=== PATIENT | female | born 1955 | race Caucasian/White ===

== ENCOUNTER → 2018-02-25 07:12 | Outpatient (CLI) | payer OTHER, SELFPAY ==
[2018-02-25 10:33] LABS: Anion Gap 8 (5-15); BUN 16 mg/dL (7-18); Calcium,Total 8.7 mg/dL (8.5-10.1); Chloride 103 mmol/L (98-107); Cholesterol 209 mg/dL (200); EST Glomerular Filtration Rate 59 mL/min (>60); Est Glom Filt Rate - Afr Amer 72 mL/min (>60); Glucose 179 mg/dL (74-106); High Density Lipoprotein 40 mg/dL; Potassium 3.7 mmol/L (3.5-5.1); Sodium Level 138 mmol/L (136-145); Triglycerides 118 mg/dL; Very Low Density Lipoprotein 24 mg/dL (5-40)
--- OUTSIDE RECORDS SUMMARY | 2018-05-29 08:02 | XMS RPT_ITS ---
:1955 Author Organization [facility] Address [address] [place] [address] Phone Care Team Providers Name Role Phone Halina COMER, Hakan Martinez Unavailable Reason for Visit Reason For Visit Description Start Date New - 1st visit with practice Preliminary reason for visit data, not yet signed by the author as of bilateral knee pain Preliminary reason for visit data, not yet signed by the author as of Chief Complaint Chief Complaint Description Start Date bilateral knee pain Preliminary chief complaint data, not yet signed by the author as of Instructions Instruction Description Start Date Patient advised to follow-up with Primary Care Physician for BMI management. Plan of Care Type Date Detail Appointment 08:15 AM Hakan Meade MD, [address] [facility], [place], [address], Pending order XR KNEE [id number] Pending order XR KNEE [id number] Patient education \cps-sql1\CPS_PtEducation\[facility]_ FALL_PREVENTION.pdf Medications Medication Instructions Start Stop Generic Name NDC Provider Date Date ORTHO D CAPS one tablet by / FOLIC [id number] Hakan Martinez mouth daily 14 ACID-CHOLECALC Halina IFEROL CAPS POTASSIUM one tablet by / POTASSIUM [id number] Hakan Martinez CHLORIDE FE mouth daily 14 CHLORIDE EF Meade ER 10 MEQ ER CR-TABS ESCITALOPRAM one tablet by / ESCITALOPRAM [id number] Hakan Maritnez OXALATE 10 MG mouth daily 14 OXALATE Halina TABBella COMER ATENOLOL 50 MG one tablet by / ATENOLOL [id number] Hakan Martinez TABS mouth daily 14 Halina COMER TRIAMTERENE-HCT one tablet by / TRIAMTERENE-HC [id number] Hakan Martinez Z 37.5-25 MG mouth daily 14 TZ Halina VALDERRAMA MD Conditions or Problems Problem Problem Onset Status Entry Provider Comment Standard Annotate Name Code Date Date Description Primary 20156063331 Active Hakan Martinez Osteoarthritis severe osteoarthri 9109 04/23 04/23 Halina of left knee tis of left (SNOMED CT) MD joint knee Primary [id number] Active Hakan Martinez Osteoarthritis moderate osteoarthri 9100 04/23 04/23 Halina of right knee tis of (SNOMED CT) MD joint right knee Allergies, Adverse Reactions, Alerts Allergy Name Reaction Start Date Severity Status Provider Description CEFTIN rash and hives Critical Active Carole Elie (CEFUROXIME TEACHERS AIDE AXETIL) PENICILLIN swelling Critical Active Carole Delgadillo TEACHERS AIDE SULFA itching,vomiting Critical Active Carole Delgadillo and diarrhea TEACHERS AIDE Social History No information available. Vital Signs Date Name Value Unit Description BMI (Body Mass 48.60 kg/m2 Body Mass Index Index) [Ratio] Preliminary vital sign data, not yet signed by the author as of BP Diastolic 76 mm[Hg] blood pressure, diastolic Preliminary vital sign data, not yet signed by the author as of BP Systolic 134 mm[Hg] blood pressure, systolic Preliminary vital sign data, not yet signed by the author as of Heart Rate 60 /min pulse rate E&M Preliminary vital sign data, not yet signed by the author as of Height 65 [in_us] height E&M Preliminary vital sign data, not yet signed by the author as of Height 165 cm height in centimeters E&M Preliminary vital sign data, not yet signed by the author as of Weight Measured 291 [lb_av] weight E&M Preliminary vital sign data, not yet signed by the author as of Weight Measured 132 kg weight in kilograms E&M Preliminary vital sign data, not yet signed by the author as of Results Date Name Value Unit Range Flag Description Office Visit: New - 1st visit with practice, Rm: 3 MEDS REVIEW Done Documentation of current medications (procedure) Preliminary observation data, not yet signed by the author as of Preliminary observation data, not yet signed by the author as of Clinical Summary: Scanned ROS Summary ROS: Denies genitourinary review of systems, E&M ROS: GI Denies ROS gastrointestinal E&M ROS ENDO Denies endocrine ROS ROS MSK COMM Joint ROS Musculoskeletal Swelling,Pain,J comments oint Pain,Stiffness, Arthritis ROS:MUSCSKEL Complains ROS musculoskeletal E&M ROSPSYCHCOMM Depression ROS Psych comment ROS: PSYCH Complains ROS psychiatric E&M ROS HEME Denies ROS hematologic/lymphatic E&M ROS SKIN Denies ROS skin E&M ROS ENT Denies ROS ENT E&M ROS:GENERAL Denies ROS general E&M ROS: NEURO Denies ROS neurological E&M ROSPULMCOMM Sleep Apnea ROS Pulmonary comment ROS:PULMON Complains ROS pulmonary E&M ROS: CARDIAC Denies ROS cardiovascular E&M Clinical Summary: HMSPatientID OOP account number Clinical Lists Update: Preload Extended SMOK STATUS never smoker Tobacco smoking status NHIS Procedures Code Procedure Name Date Entry Date G8732 Pain assessment not documented - reason not given G8427 Current medications documented 1036F Tobacco screening was negative - non user G8417 BMI documented as above normal parameters - follow-up documented G8783 Blood pressure within normal parameters - no follow-up required 1006F Osteoarthritis symptoms and functional status assessed [facility]-[id number] Patient Encounter Medications Administered No information available. Immunizations No information available. Advance Directives There may be information available, but it has not been provided by the sender. Assessments There may be information available, but it has not been provided by the sender. Review of Systems There may be information available, but it has not been provided by the sender. Family History There may be information available, but it has not been provided by the sender. History of Past Illness There may be information available, but it has not been provided by the sender. History of Present Illness There may be information available, but it has not been provided by the sender.
== END ==
PROVIDERS: Family Provider Family Medicine; PCP Family Medicine; Referring Provider Family Medicine; Visit Provider Family Medicine
DX: Z00.00 Encounter for general adult medical examination without abnormal findings (principal)
CPT/HCPCS: 36415; 80048; 80061

== ENCOUNTER → 2018-06-11 16:09 | Outpatient (CLI) | payer OTHER, SELFPAY ==
[2018-06-11 17:24] LABS: Absolute Lymphocyte Count 2.06 X10^3/ul (0.83-4.51); Absolute Neutrophil Count 5.8 X10^3/uL (2.0-7.7); Basophil# 0.02 X10^3/uL; Basophil% 0.2 % (0-1); Eosinophil# 0.21 X10^3/uL; Eosinophils% 2.4 % (0-5); Hemoglobin 12.9 g/dl (12.0-15.0); Lymphocyte # 2.06 X10^3/ul (4.0); Lymphocyte % 23.7 % (19-41); Mean Corp Hgb Conc 33.9 g/gl (32-36); Mean Corpuscular Hgb 32.9 pg (27.0-32.0); Mean Corpuscular Volume 96.9 fL (81-99); Mean Platelet Vol. 9.2 fl (6.2-12.0); Monocyte# 0.64 X10^3/uL; Monocyte% 7.4 % (0-10); Neutrophil # 5.75 X10^3/uL (2.7-7.7); Neutrophil % 66.2 % (47-70); Platelet Count 308 K/mm3 (150-450); RBC Distribution Width CV 13.5 % (11.6-14.6); RBC Distribution Width SD 47.5 fl (35.1-43.9); Red Blood Count 3.92 M/mm3 (4.2-5.4); White Blood Count 8.7 K/mm3 (4.4-11.0)
[2018-06-11 17:26] LABS: POSITIVE COUNT NO; POSITIVE DIFFERENTIAL NO; POSITIVE MORPHOLOGY NO
== END ==
PROVIDERS: Family Provider Family Medicine; PCP Family Medicine; Referring Provider Family Medicine; Visit Provider Family Medicine
DX: D64.9 Anemia, unspecified (principal)
CPT/HCPCS: 36415; 85025

== ENCOUNTER 2018-09-16 15:30 | Outpatient (RCR) | payer OTHER, SELFPAY ==
--- NOTE | 2018-06-22 18:38 | HP.PTEVAL_ITS ---
Patient's Visit Information MARISSA CAMERON is a 62 year old F referred to Physical Therapy by GINNY CR with a diagnosis of S/P LEFT TOTAL KNEE REPLACEMENT. Date of Evaluation: 06/22/18 Physical Therapist: Blair Benavides, PT, Cert MDT, OCS - Visit Plan Frequency: 2x /Week Duration: 6 Weeks Plan: S/P LEFT TKR. FOCUS ON ROM. INTERVENTIONS TO INCLUDE AROM/PROM KNEE,FLEXABLITY,PRE'S QUADS/HAMS HIP,GAIT ,BALANCE TRAINING - Subjective Findings: This 62 y/o female presents to physical therapy with s/p left TKR on 05/07/18. Patient had Left TKA done by DR Arzate at [facility] at [facility]. Patient D/C May 09 from with walker. Patient at Rehab at [facility] ,then d/c May 28 2018 to home. Patient then had Home PT 3 weeks then transition cane community distance,but use no device at home. Home Situation: 1 story no steps.Patient plans to follow up Gavin COMER JULY 03 . Patient conts to have edema left knee. Patient Left TKR affects QOL and function and houseworks. SOCIAL: lives alone. VOCATION: payroll - Pain Left Knee Pain Intensity (Out of 10): 1 Pain Intensity Range: 10 - Objective POSTURE: mild foward posture. NEURO: mild parathesia lateral leg to k nee. EDEMA: joint line 59.7 cm left. GAIT: ambulates with swing phase mild decrease stance time during cycle. AROM: 0-95 degrees supine flexion. AAROM: 100 supine degrees flexion. MMT: 4/5 quads/hams ,hip flexion 4-/5 ,ankle 4/5. BALANCE: good-. FLEXABLITY: hams min tight - Goals Goal 1:: Patient to be Independant with HEP. Goal Time Frame: 4-6 Weeks Goal 2:: Patient to normalize gait with swing pase stance time during the gait cycle community Goal Time Frame: 4-6 Weeks Goal 3:: Patient to increase active 0-110 supine knee improve function with gait Goal Time Frame: 4-6 Weeks Goal 4:: Patient improve balance to good Goal Time Frame: 4-6 Weeks Goal 5:: Patient to improve LFES by 10 points or greater to improve QOL Goal Time Frame: 4-6 Weeks Goal 6:: Patient RTW without limiations and HOUSEWORK TASKS. Goal Time Frame: 4-6 Weeks - Rehabilitation Potential Physical Therapy Diagnosis: Patient underwent s/p TKR decrease ROM ,strength impairs gait and function thus benifit from skilled PT Rehabilitation Potential: Good - Anticipated Interventions Patient/Client Instruction: Educate patient on: Condition, Plan of Care For the Purpose of:: To decrease pain, To increase ROM, To improve muscle performance and motor function, To improve ability to perform ADL's, To increase tolerance to activity/condition/position, To improve performance and independence with ADL's, To improve ability of physical actions for home/community/work/leisure, To improve gait and locomotor functions, To improve health of tissue, To decrease soft tissue restriction, To increase flexibility/ROM Therapeutic Exercise to Include: Strength training, Balance training, Postural training, Flexibilty training, Gait and locomotor training, Passive ROM, Active ROM Comment: KNEE For the Purpose of:: To decrease swelling/inflammation, To increase ROM, To increase oxygenation perfusion, To improve muscle performance and motor function, To improve ability to perform ADL's, To increase tolerance to activity/condition/position, To improve ability of physical actions for home/community/work/leisure, To improve gait and locomotor functions, To improve health of tissue, To decrease soft tissue restriction, To increase flexibility/ROM, To improve balance, To reduce risk of recurrence, To improve ability to perform tasks related to life management Cryotherapy (ice pack, ice massage): Yes Thermo therapy (hot pack): Yes Vasopneumatic device: Yes For the Purpose of:: To decrease pain, To decrease swelling/inflammation, To improve nutrient delivery to tissue, To increase oxygenation perfusion, To improve health of tissue, To decrease soft tissue restriction Thank you for the opportunity to evaluate your patient. For Medicare and Medicare HMO plans, please review the plan of care and approve it. It will need to be FAXED BACK to us at [phone] for Medicare purposes. For Medicare only, by signing this I certify the plan of care. Please let me know if there are questions or concerns regarding this plan of care. Physician Signature: Date:
--- NOTE | 2018-09-16 16:03 | HP.PTDCSUM ---
HP - PT D/C Summary It has been my pleasure to treat MARISSA CAMERON under orders from GINNY CR, for the diagnosis of S/P LEFT TOTAL KNEE REPLACEMENT for a total of 23 visit(s). Discharge Date: 09/16/18 Please see the following information for a summary of their discharge status. - Subjective Subjective: Doing well .Knee gets stiff with prolonged sitting. Patient plans to retire. STAIRS doing good. - Pain Left Knee Pain Intensity (Out of 10): 0 - Overall Improvement % Improvement: 90 - Objective Objective/Function: GAIT:NORMAL ADONAY. STAIRS: ALTERNATING WITH RAILS. AROM: 0-110 SUPINE KNEE FLEXION. MMT: QUADS/HAMS/HIP 4/5,ANKLE 5/5 - Goals Goal 1:: Patient to be Independant with HEP. Goal Progress: Goal Met Goal 2:: Patient to normalize gait with swing pase stance time during the gait cycle community Goal Progress: Goal Met Goal 3:: Patient to increase active 0-110 supine knee improve function with gait Goal Progress: Goal Met Goal 4:: Patient improve balance to good Goal Progress: Goal Met Goal 5:: Patient to improve LFES by 10 points or greater to improve QOL Goal Progress: Goal Met Goal 6:: Patient RTW without limiations and HOUSEWORK TASKS. Goal Progress: Goal Met - Plan Plan: D/C TO HEP - D/C Information Discharge Comments: HEP If there are questions or concerns regarding this patient's physical therapy, please feel free to call me at [phone]. Thank you for the referral of this patient. Sincerely, Blair Benavides, PT, Cert MDT, OCS
== END 2018-09-16 16:23 | disposition home or self-care (01) ==
LOC: PT 15:30
PROVIDERS: Family Provider Family Medicine; PCP Family Medicine
DX: Z96.652 Presence of left artificial knee joint (principal)
CPT/HCPCS: 97110; 97140; 97162; 97530

== ENCOUNTER → 2018-12-17 14:22 | Outpatient (CLI) | payer MEDICARE, OTHER, SELFPAY ==
[2015-08-14 10:30] VITALS: BMI 44.7
--- NOTE | 2018-12-17 14:54 | RAD_ITS ---
HISTORY: recent fall, pain ADDITIONAL HISTORY: None provided. COMPARISON: None TECHNIQUE: Right ankle 3 views Number of images including paperwork: 3 FINDINGS: BONES: Ossific densities adjacent to the lateral malleolus are age indeterminate. Corticated ossific density adjacent to the medial malleolus is likely posttraumatic. Plantar enthesophyte. JOINTS: No subluxation. Mild to moderate degenerative changes of the ankle and midfoot. SOFT TISSUES: No distinct foreign body. Soft tissue swelling. RAD/Ankle min 3 Views IMPRESSION: Ossific densities adjacent to the lateral malleolus compatible with avulsion fractures of uncertain chronicity. Correlate for localized pain. at 2339 Reported and signed by: Angi Leigh MD Electronically Signed: Angi Leigh MD at 23:38 EDT Tel , Service support ,
--- NOTE | 2018-12-17 14:54 | RAD_ITS ---
HISTORY: recent fall, pain ADDITIONAL HISTORY: None provided. COMPARISON: None TECHNIQUE: Left ankle 3 views Number of images including paperwork: 3 FINDINGS: BONES: Small ossific density adjacent to the lateral malleolus of uncertain chronicity. Plantar enthesophyte. JOINTS: No subluxation. Mild to moderate degenerative changes of the ankle and midfoot. SOFT TISSUES: No distinct foreign body. Soft tissue swelling. RAD/Ankle min 3 Views IMPRESSION: Age-indeterminate lateral malleolus avulsion fracture. at 2340 Reported and signed by: Angi Leigh MD Electronically Signed: Angi Leigh MD at 23:40 EDT Tel , Service support ,
[2018-12-17 16:26] LABS: Anion Gap 7 (5-15); BUN 14 mg/dL (7-18); BUN/Creat Ratio 15.1 RATIO (10-20); Calcium,Total 8.4 mg/dL (8.5-10.1); Chloride 108 mmol/L (98-107); Cholesterol 199 mg/dL (200); Creatinine, Serum 0.93 mg/dL (0.55-1.02); EST Glomerular Filtration Rate 65 mL/min (>60); Est Glom Filt Rate - Afr Amer 78 mL/min (>60); Glucose 132 mg/dL (74-106); High Density Lipoprotein 47 mg/dL; Sodium Level 142 mmol/L (136-145); Triglycerides 121 mg/dL; Very Low Density Lipoprotein 24 mg/dL (5-40)
[2018-12-17 16:31] LABS: Hemoglobin A1c 6.4 % (4.2-6.3)
== END ==
PROVIDERS: Family Provider Family Medicine; PCP Family Medicine; Referring Provider Family Medicine; Visit Provider Family Medicine
DX: E11.9 Type 2 diabetes mellitus without complications (principal); W19.XXXA Unspecified fall, initial encounter
CPT/HCPCS: 36415; 73610; 80048; 80061; 83036

== ENCOUNTER → 2019-02-12 15:47 | Outpatient (CLI) | payer MEDICARE, OTHER, SELFPAY ==
--- NOTE | 2019-02-12 15:52 | MRI_ITS ---
STUDY: MRI LEFT ANKLE WITHOUT CONTRAST REASON FOR EXAM: Female, 63 years old. Pain. Recent fracture. TECHNIQUE: Standardized fat and water weighted pulse sequences were obtained in all 3 orthogonal planes. COMPARISON: X-ray December 17, 2018 FINDINGS: Normal subcutis adipose space. There is mild fluid in the sheath of the posterior tibialis tendon. Normal flexor digitorum longus tendon. Normal flexor hallucis longus tendon. There is mild fluid in the sheath of the peroneus longus and brevis tendons. There is tenosynovitis of the tibialis anterior tendon. Normal extensor hallucis longus tendon. Normal extensor digitorum longus tendons. Normal Achilles tendon and teno-osseous insertion. Normal plantar fascia. There is a plantar calcaneal spur, but without cancellous marrow edema. Normal intrinsic muscles of the rearfoot. Normal distal tibiofibular syndesmotic ligamentous complex. Ossifications inferior to the medial and lateral malleoli with avulsion of indeterminate age and/or chronic impingement. Thickening of the anterior talofibular ligament with a chronic sprain. Normal subtalar ligaments and sinus tarsi. Normal deltoid ligamentous complexes. Normal plantar calcaneonavicular (spring) ligament. Small effusion of the tibiotalar articulation. Normal talar dome. Normal subtalar articulations. Effusion of the talonavicular articulation. Normal calcaneocuboid articulation. Mild spurring of the navicular-cuneiform articulations. MRI/Lower Ext Joint Only (Routine) IMPRESSION: No acute fracture. Chronic medial and lateral impingement. Chronic lateral sprain. Tenosynovitis with fluid in the sheath of the tibialis anterior, tibialis posterior, and peroneal tendons. Electronically Signed: Juan José Haywood MD at 8:31 EST , Service support ,
== END ==
PROVIDERS: Family Provider Family Medicine; PCP Family Medicine; Referring Provider Podiatrist; Visit Provider Podiatrist
DX: S96.812A Strain of other specified muscles and tendons at ankle and foot level, left foot, initial encounter (principal); S82.62XA Displaced fracture of lateral malleolus of left fibula, initial encounter for closed fracture; S93.402A Sprain of unspecified ligament of left ankle, initial encounter; X58.XXXA Exposure to other specified factors, initial encounter
CPT/HCPCS: 73721

== ENCOUNTER 2019-03-23 10:00 | Outpatient (RCR) | payer MEDICARE, OTHER, SELFPAY ==
--- NOTE | 2019-02-23 09:01 | HP.PTEVAL_ITS ---
Patient's Visit Information MARISSA CAMERON is a 63 year old F referred to Physical Therapy by Beltran Del Cid DPM with a diagnosis of Left Ankle Sprain. Date of Evaluation: 02/23/19 Physical Therapist: Michelle Novak DPT - Visit Plan Frequency: 2x /Week Duration: 4 Weeks Plan: Left Ankle Sprain- focus on ROM, strength, functional mobility- DN and manual as needed - Subjective Findings: Fell at the end of November over raised concrete. Sprained the left and it swelled drastically. A week and half after it happened. And she had fractures in both ankles. The left one just seems to be hanging on. He did a CT Scan which showed fluid pockets. If she is one it (ex grocery store) then it really bothers her. If she just ice and elevates it feels better. When she sits down it also throbs. Had a knee replacement in Apr so she is unsure if thats compounding the issues. Pain is located on the lateral aspect of the knee- usually on the back of the malleolus- No radiating pains- Describes as sharp and painful- but now its achy all the time but when shes is on it more it intensifies. No numbness but does notice burning. Worst: 05/17 Best: 03/19. Agg: ambulation, uneven surfaces, sitting with it down. Wears an ankle brace at all time unless she is sleeping. Her aunt has to put it on each day so she would like to get rid of it. Dr. Del Cid is talking about an orthotic ankle brace. She goes back to Dr. Del Cid on Mar 08. Work: retired. Is very sedentary but would like to get more active. Sleep: not disturbed. Does not have stairs at home so she does not do them. PMHx: HTN, Left TKR Meds: Metformin, Atenolol, Trimenatrine, Asetealopram. - Objective Posture: FH, RS- pt is overweight. Gait: decreased stance on the left LE with poor heel/toe pattern- no AD or boot but does wear and ankle brace. HR: able. TR: unable. SLS: weight shift but unable to SLS- reports fear or falling. Palpation: tender along lateral malleolus. ROM: WFL except DF: 5 degrees from neutral. Strength: Ankle; 4/5 throughout, Knee: 5/5. Flex: HS: severe, Gastroc: severe, Soleus: severe - Goals Goal 1:: Patient will be I with HEP and progression Goal Time Frame: 4-6 Weeks Goal 2:: Patient will ambulate >300 feet with a normalized gait pattern Goal Time Frame: 4-6 Weeks Goal 3:: Patient will SLS for 10 sec without LOB Goal Time Frame: 4-6 Weeks Goal 4:: Patient will return to all normal ADL's with 0/10 pain Goal Time Frame: 4-6 Weeks Goal 5:: Patient will demo 10 degrees of DF Goal Time Frame: 4-6 Weeks - Rehabilitation Potential Physical Therapy Diagnosis: Patient presents with hypomobility- she has decreased ROM, strength, flex and muscular endurance leading to abnormal gait and increased pain with ADL's Rehabilitation Potential: Fair - Anticipated Interventions Therapeutic Exercise to Include: Strength training, Endurance training, Balance training, Body mechanics, Postural training, Flexibilty training, Gait and locomotor training, Passive ROM, Active ROM, Dynamic Lumbar Stabilization For the Purpose of:: To improve muscle performance and motor function, To improve performance and independence with ADL's Manual Therapy Techniques to Include: Mobilization, Functional dry needling, Soft tissue mobilization For the Purpose of:: To improve nutrient delivery to tissue TENS: Yes Cryotherapy (ice pack, ice massage): Yes Thermo therapy (hot pack): Yes Ultrasound (thermal/non thermal): Yes Thank you for the opportunity to evaluate your patient. For Medicare and Medicare HMO plans, please review the plan of care and approve it. It will need to be FAXED BACK to us at [phone] for Medicare purposes. For Medicare only, by signing this I certify the plan of care. Please let me know if there are questions or concerns regarding this plan of care. Physician Ольга proctor: Date:
--- NOTE | 2019-03-23 10:35 | HP.PTDCSUM ---
HP - PT D/C Summary It has been my pleasure to treat MARISSA CAMERON under orders from Beltran Del Cid DPM, for the diagnosis of Left Ankle Sprain for a total of 7 visit(s). Discharge Date: Please see the following information for a summary of their discharge status. - Subjective Subjective: Zainab reports that she does not really have pain- when she is on it a lot her ankle puffs up a little and she has discomfort. She feels a lot better but is frustrated with this brace that has not come yet. - Overall Improvement % Improvement: 80 - Objective Objective/Function: Posture: fair throughout session. Gait: slightly antalgic- decreased heel/toe pattern HR: able. TR: unable. SLS: 3 sec- reports fear of falling. Palpation: not tender to touch ROM: WFL except DF: 5 degreesl. Strength: Ankle; 5/5 throughout, Knee: 5/5. Flex: HS: severe, Gastroc: mod, Soleus: mod - Goals Goal 1:: Patient will be I with HEP and progression Goal Progress: Goal Met Goal 2:: Patient will ambulate >300 feet with a normalized gait pattern Goal Progress: Progressing Goal 3:: Patient will SLS for 10 sec without LOB Goal Progress: Progressing Goal 4:: Patient will return to all normal ADL's with 0/10 pain Goal Progress: Progressing Goal 5:: Patient will demo 10 degrees of DF Goal Progress: Progressing - Plan Plan: Discharge- printed HEP (HR, step up, gastroc stretch, SLS, 4 way tband) - D/C Information If there are questions or concerns regarding this patient's physical therapy, please feel free to call me at [phone]. Thank you for the referral of this patient. Sincerely, DAISY AngT
== END 2019-03-23 19:00 | disposition home or self-care (01) ==
LOC: PT 10:00
PROVIDERS: Family Provider Family Medicine; PCP Family Medicine; Referring Provider Podiatrist; Visit Provider Podiatrist
DX: S93.492D Sprain of other ligament of left ankle, subsequent encounter (principal); M25.872 Other specified joint disorders, left ankle and foot
CPT/HCPCS: 97035; 97110; 97140; 97161; 97164

== ENCOUNTER → 2019-11-10 12:03 | Outpatient (CLI) | payer MEDICARE, OTHER, SELFPAY ==
[2015-08-14 10:30] VITALS: BMI 44.7
[2019-11-10 16:19] LABS: Anion Gap 6 (5-15); BUN 16 mg/dL (7-18); BUN/Creat Ratio 15.1 RATIO (10-20); Calcium,Total 9.1 mg/dL (8.5-10.1); Chloride 104 mmol/L (98-107); Cholesterol 235 mg/dL (200); Creatinine, Serum 1.06 mg/dL (0.55-1.02); EST Glomerular Filtration Rate 55 mL/min (>60); Est Glom Filt Rate - Afr Amer 67 mL/min (>60); Glucose 186 mg/dL (74-106); High Density Lipoprotein 41 mg/dL; Potassium 3.8 mmol/L (3.5-5.1); Sodium Level 137 mmol/L (136-145); Triglycerides 187 mg/dL; Very Low Density Lipoprotein 37 mg/dL (5-40)
[2019-11-10 16:26] LABS: Hemoglobin A1c 7.2 % (3.8-5.6)
[2019-11-10 17:38] LABS: Absolute Lymphocyte Count 1.45 X10^3/uL (0.83-4.51); Absolute Neutrophil Count 5.7 X10^3/uL (2.0-7.7); Basophil# 0.03 X10^3/uL; Basophil% 0.4 % (0-1); Eosinophil# 0.14 X10^3/uL; Eosinophils% 1.8 % (0-5); Hematocrit 38.5 % (37-47); Lymphocyte # 1.45 X10^3/ul (4.0); Lymphocyte % 18.5 % (19-41); Mean Corp Hgb Conc 33.8 g/dL (32-36); Mean Corpuscular Hgb 32.9 pg (27.0-32.0); Mean Corpuscular Volume 97.5 fL (81-99); Mean Platelet Vol. 9.4 fl (6.2-12.0); Monocyte# 0.47 X10^3/uL; NRBC Flagged by Analyzer 0 % (0-5); Neutrophil # 5.74 X10^3/uL (2.7-7.7); Platelet Count 312 K/mm3 (150-450); RBC Distribution Width CV 13.2 % (11.6-14.6); RBC Distribution Width SD 46.5 fl (35.1-43.9); Red Blood Count 3.95 M/mm3 (4.2-5.4); White Blood Count 7.9 K/mm3 (4.4-11.0)
== END ==
PROVIDERS: PCP Family Medicine; Referring Provider Family Medicine; Visit Provider Family Medicine
DX: I10 Essential (primary) hypertension (principal); D64.9 Anemia, unspecified; E11.9 Type 2 diabetes mellitus without complications
CPT/HCPCS: 36415; 80048; 80061; 83036; 85025

== ENCOUNTER → 2019-12-02 14:58 | Outpatient (CLI) | payer MEDICARE, OTHER, SELFPAY ==
--- NOTE | 2019-12-02 15:00 | BI_ITS ---
MAMMOGRAPHY - BILATERAL SCREENING REASON FOR EXAM: Female, 64 years old. Routine annual screening examination. PERTINENT HISTORY: Non-contributory. TECHNIQUE: Digital bilateral breast stuart (3D mammographic acquisition) in the CC and MLO projections. 2-D mediolateral oblique (MLO) and craniocaudad (CC) views of both breasts were obtained. CAD: Full Field Digital Mammography with Computer Added Detection was performed. COMPARISON: Comparison is made with prior study dated 10/23/2012. FINDINGS: Breast Composition: There are scattered areas of fibroglandular density. There are no dominant masses or suspicious calcifications. Stable benign-appearing bilateral axillary lymph nodes. No other significant abnormalities are identified. There has been no significant change since the prior study. BI/SCREEN MAMM (CAD) W/STUART BILAT IMPRESSION: Stable bilateral screening mammogram. Yearly follow-up mammogram recommended. (A) ASSESSMENT CATEGORY: BIRADS Category 2: Benign. A letter regarding these results will be sent to the patient by the facility within 30 days. Approximately 10% of breast cancers are not detected by mammography. A normal mammogram should not delay biopsy of a clinically suspicious abnormality. [id number] Electronically Signed: Sergey Cota, at 8:09 EDT , Service support ,
--- NOTE | 2019-12-02 15:04 | BD_ITS ---
STUDY: DUAL ENERGY X-RAY ABSORPTIOMETRY / DXA REASON FOR EXAM: Female, 64 years old. 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 HEIGHT TECHNIQUE: Bone Mineral Density (BMD) measurements of lumbar spine and bilateral hips were obtained. COMPARISON: None. FINDINGS: Lumbar Spine (L1-L4): g/cm2 (1.196) / T-score (0.0) / Z-score (1.6) Findings are suggestive of normal bone density with a low fracture risk. Left Femur Total: g/cm2 (0.953) / T-score (-0.4) / Z-score (0.8) Left Femoral Neck: g/cm2 (0.880) / T-score (-1.1) / Z-score (0.4) Right Femur Total: g/cm2 (0.947) / T-score (-0.5) / Z-score (0.8) Right Femoral Neck: g/cm2 (0.922) / T-score (-0.8) / Z-score (0.7) BD/Dexa Bone Density Study IMPRESSION: The patient is considered osteopenic as outlined below according to World Kody Organization (WHO) criteria with a low fracture risk. Reference Information: The T-score is the number of standard deviations above or below the standard which is normal for young adults at their peak bone mineral density. The World Health Organization (WHO) interprets the T-scores as follows: Above -1 Normal bone density Between -1 and -2.5 Osteopenia Equal to / or below -2.5 Osteoporosis As a practical clinical guideline, osteopenia may be graded as follows: Mild -1 through -1.5 Moderate -1.6 through -2.0 Severe -2.1 through -2.4 The Z-score is the number of standard deviations above or below age-matched controls. A Z-score of less than -1.5 would be considered abnormal. References: 1. NIH Osteoporosis and Related Bone Diseases http://www.osteo.org 2. International Society for Clinical Densitometry http://www.iscd.org 3. National Osteoporosis Foundation http://www.nof.org Electronically Signed: Sergey Cota, at 15:46 EDT , Service support ,
== END ==
PROVIDERS: PCP Family Medicine; Referring Provider Family Medicine; Visit Provider Family Medicine
DX: Z78.0 Asymptomatic menopausal state (principal); Z12.31 Encounter for screening mammogram for malignant neoplasm of breast
CPT/HCPCS: 77063; 77067; 77080

== ENCOUNTER → 2020-05-18 09:11 | Outpatient (CLI) | payer MEDICARE, OTHER, SELFPAY ==
[2015-08-14 10:30] VITALS: BMI 44.7
[2020-05-18 10:36] LABS: Microalbumin,Random Urine 10.5 mg/L (NO RANGE EST.); Microalbumin:Creatinine Ratio 13.3 mg/g CRE (<30 mg/g CRE)
[2020-05-18 10:45] LABS: Anion Gap 11 (5-15); BUN 20 mg/dL (7-18); BUN/Creat Ratio 15.6 RATIO (10-20); Chloride 98 mmol/L (98-107); Cholesterol 173 mg/dL (200); Creatinine, Serum 1.28 mg/dL (0.55-1.02); EST Glomerular Filtration Rate 44 mL/min (>60); Est Glom Filt Rate - Afr Amer 54 mL/min (>60); Glucose 253 mg/dL (74-106); High Density Lipoprotein 45 mg/dL; Potassium 3.2 mmol/L (3.5-5.1); Sodium Level 135 mmol/L (136-145); Triglycerides 172 mg/dL; Very Low Density Lipoprotein 34 mg/dL (5-40)
== END ==
PROVIDERS: PCP Family Medicine; Referring Provider Family Medicine; Visit Provider Family Medicine
DX: E11.9 Type 2 diabetes mellitus without complications (principal)
CPT/HCPCS: 36415; 80048; 80061; 82043; 82570

== ENCOUNTER → 2020-08-03 10:56 | Outpatient (CLI) | payer MEDICARE, OTHER, SELFPAY ==
[2015-08-14 10:30] VITALS: BMI 44.7
[2020-08-03 13:03] LABS: Anion Gap 6 (5-15); BUN 21 mg/dL (7-18); BUN/Creat Ratio 18.3 RATIO (10-20); Calcium,Total 9.4 mg/dL (8.5-10.1); Chloride 105 mmol/L (98-107); Creatinine, Serum 1.15 mg/dL (0.55-1.02); EST Glomerular Filtration Rate 50 mL/min (>60); Est Glom Filt Rate - Afr Amer 61 mL/min (>60); Glucose 191 mg/dL (74-106); Potassium 3.8 mmol/L (3.5-5.1); Sodium Level 136 mmol/L (136-145)
== END ==
PROVIDERS: PCP Family Medicine; Referring Provider Family Medicine; Visit Provider Family Medicine
DX: I10 Essential (primary) hypertension (principal)
CPT/HCPCS: 36415; 80048

== ENCOUNTER 2021-05-18 08:43 | Outpatient (CLI) | payer MEDICARE, OTHER, SELFPAY ==
[2021-05-18 10:33] LABS: Anion Gap 8 (5-15); BUN 24 mg/dL (7-18); BUN/Creat Ratio 21.6 RATIO (10-20); Chloride 107 mmol/L (98-107); Cholesterol 169 mg/dL (200); Creatinine, Serum 1.11 mg/dL (0.55-1.02); EST Glomerular Filtration Rate 52 mL/min (>60); Est Glom Filt Rate - Afr Amer 63 mL/min (>60); Glucose 191 mg/dL (74-106); High Density Lipoprotein 44 mg/dL; Potassium 3.9 mmol/L (3.5-5.1); Sodium Level 137 mmol/L (136-145); Triglycerides 152 mg/dL; Very Low Density Lipoprotein 30 mg/dL (5-40)
== END 2021-05-18 23:59 | disposition home or self-care (01) ==
LOC: MTLAB 08:45
PROVIDERS: PCP Family Medicine; Referring Provider Family Medicine; Visit Provider Family Medicine
DX: E11.9 Type 2 diabetes mellitus without complications (principal)
CPT/HCPCS: 36415; 80048; 80061

== ENCOUNTER → 2021-08-01 | Outpatient (CLI) | payer MEDICARE, OTHER, SELFPAY ==
--- NOTE | 2021-08-01 16:23 | RAD_ITS ---
STUDY: X-RAY CHEST REASON FOR EXAM: Female, 65 years old. COUGH TECHNIQUE: 2 views COMPARISON: None. FINDINGS: Cardiomediastinal silhouette is unremarkable. Costophrenic angles are sharp. Lungs are hyperinflated but clear. The trachea is midline. There is no pneumothorax. The bones are grossly intact. RAD/Chest PA and Lateral IMPRESSION: No acute cardiopulmonary process. Electronically Signed: Buck Sheehan MD at 2:35 EDT ,
== END | disposition home or self-care (01) ==
LOC: MTRAD 16:21
PROVIDERS: PCP Family Medicine; Referring Provider Family Medicine; Visit Provider Family Medicine
DX: R05.9 Cough, unspecified (principal)
CPT/HCPCS: 71046

== ENCOUNTER → 2021-10-10 | Outpatient (CLI) | payer MEDICARE, OTHER, SELFPAY ==
--- NOTE | 2021-10-10 11:16 | RAD_ITS ---
INDICATION: PAIN EXAMINATION/TECHNIQUE: X-RAY - RIGHT XR Knee Complete 4 Views or More 4 VIEWS COMPARISON: None. FINDINGS: Moderate to severe narrowing of the medial, lateral and patellofemoral joint spaces is seen. Degenerative changes visualized with subtle osteophyte formation seen. No evidence of cortical irregularity or lucency to suggest a fracture, no evidence of lytic or sclerotic bone lesion is seen. No evidence of suprapatellar effusion is seen. Unremarkable alignment of the quadriceps and patellar tendons. RAD/Knee 4 or More Views IMPRESSION: Tricompartmental osteoarthritic changes, no evidence of acute osseous abnormality. Electronically Signed: Waqas Kothari MD at 14:08 EDT ,
== END | disposition home or self-care (01) ==
LOC: MTLAB 11:15
PROVIDERS: PCP Family Medicine; Referring Provider Family Medicine; Visit Provider Family Medicine
DX: M17.10 Unilateral primary osteoarthritis, unspecified knee (principal)
CPT/HCPCS: 73564

== ENCOUNTER → 2022-07-22 | Outpatient (CLI) | payer MEDICARE, OTHER, SELFPAY ==
[2022-07-22 13:02] LABS: AST(SGOT) 16 U/L (15-37); Alanine Aminotransfer ALT/SGPT 21 U/L (13-56); Albumin, Serum 3.6 g/dL (3.2-5.0); Alkaline Phosphatase 93 U/L (45-117); Anion Gap 6 (5-15); BUN 19 mg/dL (7-18); Calcium,Total 9.3 mg/dL (8.5-10.1); Chloride 108 mmol/L (98-107); Cholesterol 166 mg/dL (200); Creatinine, Serum 1.19 mg/dL (0.55-1.02); EST Glomerular Filtration Rate 48 mL/min (>60); Est Glom Filt Rate - Afr Amer 58 mL/min (>60); Globulin 3.7 g/dL (2.2-4.2); Glucose 158 mg/dL (74-106); High Density Lipoprotein 47 mg/dL; Potassium 4.4 mmol/L (3.5-5.1); Protein, Total 7.3 g/dL (6.4-8.2); Sodium Level 138 mmol/L (136-145); Triglycerides 119 mg/dL; Very Low Density Lipoprotein 24 mg/dL (5-40)
== END | disposition home or self-care (01) ==
LOC: MFPLAB 09:44
PROVIDERS: PCP Family Medicine; Visit Provider Family Medicine
DX: E11.9 Type 2 diabetes mellitus without complications (principal)
CPT/HCPCS: 36415; 80053; 80061

== ENCOUNTER → 2023-01-08 | Outpatient (CLI) | payer MEDICARE, OTHER, SELFPAY ==
[2023-01-08 18:20] LABS: Anion Gap 8 (5-15); BUN 24 mg/dL (7-18); BUN/Creat Ratio 20.5 RATIO (10-20); Chloride 109 mmol/L (98-107); Creatinine, Serum 1.17 mg/dL (0.55-1.02); EST Glomerular Filtration Rate 49 mL/min (>60); Est Glom Filt Rate - Afr Amer 59 mL/min (>60); Glucose 118 mg/dL (74-106); Potassium 4.3 mmol/L (3.5-5.1); Sodium Level 139 mmol/L (136-145)
== END | disposition home or self-care (01) ==
LOC: MFPLAB 15:25
PROVIDERS: PCP Family Medicine; Visit Provider Family Medicine
DX: E11.9 Type 2 diabetes mellitus without complications (principal)
CPT/HCPCS: 36415; 80048

== ENCOUNTER → 2023-07-11 | Outpatient (CLI) | payer MEDICARE, OTHER, SELFPAY ==
[2023-07-11 16:00] LABS: AST(SGOT) 13 U/L (15-37); Alanine Aminotransfer ALT/SGPT 18 U/L (13-56); Albumin, Serum 3.8 g/dL (3.2-5.0); Alkaline Phosphatase 85 U/L (45-117); Anion Gap 5 (5-15); BUN 20 mg/dL (7-18); BUN/Creat Ratio 18.5 RATIO (10-20); Calcium,Total 9.6 mg/dL (8.5-10.1); Chloride 106 mmol/L (98-107); Cholesterol 170 mg/dL (200); Creatinine, Serum 1.08 mg/dL (0.55-1.02); EST Glomerular Filtration Rate 53 mL/min (>60); Est Glom Filt Rate - Afr Amer 65 mL/min (>60); Globulin 3.8 g/dL (2.2-4.2); Glucose 153 mg/dL (74-106); High Density Lipoprotein 54 mg/dL; Potassium 4.3 mmol/L (3.5-5.1); Protein, Total 7.6 g/dL (6.4-8.2); Sodium Level 137 mmol/L (136-145); Triglycerides 108 mg/dL; Very Low Density Lipoprotein 22 mg/dL (5-40)
== END | disposition home or self-care (01) ==
PROVIDERS: PCP Family Medicine; Referring Provider Family Medicine; Visit Provider Family Medicine
DX: E11.9 Type 2 diabetes mellitus without complications (principal)
CPT/HCPCS: 36415; 80053; 80061

== ENCOUNTER → 2024-08-16 | Outpatient (CLI) | payer MEDICARE, OTHER, SELFPAY ==
[2024-08-16 18:38] LABS: ALB/GLOB Ratio 1.3 RATIO (0.9-2.4); AST(SGOT) 14 U/L (<=31); Alanine Aminotransfer ALT/SGPT 12 U/L (<=34); Albumin, Serum 4.2 g/dL (3.4-4.8); Alkaline Phosphatase 108 U/L (35-104); Anion Gap 12 (5-15); BUN 22 mg/dL (4-19); BUN/Creat Ratio 20.8 RATIO (10-20); Calcium,Total 9.4 mg/dL (7.6-11.0); Chloride 102 mmol/L (98-108); Cholesterol 169 mg/dL (<=200); Creatinine, Serum 1.06 mg/dL (0.70-1.20); EST Glomerular Filtration Rate 57 (>60); Globulin 3.2 g/dL (2.2-4.2); Glucose 179 mg/dL (70-99); High Density Lipoprotein 49 mg/dL; Low Density Lipoprotein Calc. 97 mg/dL; Potassium 4.5 mmol/L (3.3-5.1); Protein, Total 7.4 g/dL (5.9-8.4); Sodium Level 137 mmol/L (133-145); Total Bilirubin 0.76 mg/dL (0.00-1.30); Triglycerides 117 mg/dL; Very Low Density Lipoprotein 23 mg/dL (5-40); cholesterol:hdl ratio screen 3.48
--- OUTSIDE RECORDS SUMMARY | 2024-08-16 23:36 | XMS RPT_ITS | CCD ---
Author Organization [facility] Care Team Providers Care [place] Name Role Phone Halina COMER, Hakan Martinez Unavailable Tico Elizondo Primary Care Unavailable Tico Elizondo Attending Unavailable Tico Elizondo Referring Unavailable Jonathan NATIONAL [place]PELINT ANALYST, Michelle Attending Unavailable Jonathan NATIONAL [place]PELINT ANALYST, Michelle Referring Unavailable Tico Elizondo Primary Care Unavailable Allergies Allergy Classification Reported Allergen(s) Allergy Type Date of Onset Reaction(s) Facility (1 source) Cefuroxime Drug Allergy 8 rash and hives [facility] Work Phone: (1 source) Penicillin Drug Allergy 8 swelling [facility] Work Phone: (1 source) Sulfacetamide Drug Allergy 8 itching,vomiti ng and diarrhea [facility] Work Phone: (4 sources) Cefuroxime; Translations: [cefuroxime axetil] Drug Allergy 6 Vomiting [facility] (4 sources) Hydroxychloroquin e; Translations: [hydroxychloroqui ne sulfate] Drug Allergy 6 Rash [facility] (4 sources) Penicillins; Translations: [Penicillins] Allergy to substance 6 Swelling [facility] (4 sources) Sulfonamides (Antibiotic); Translations: [Sulfa (Sulfonamide Antibiotics)] Allergy to substance 6 BECOMES VERY HOT AND N/V [facility] Medications Current Medications Medication Drug Class(es) Dates Sig (Normalized) Sig (Original) azelaic acid 150 mg/ml topical foam (3 sources) Start: 07-26-2015 Azelaic Acid (Finacea) 50 GM foam Active 50 GM TP DAILY July 26, 2015 12:00am clobetasol propionate 0.5 mg/ml topical cream (3 sources) Corticosteroid Start: 07-26-2015 Clobetasol-Emollien t Active 30 GM TP DAILY July 26, 2015 12:00am linseed oil 1000 mg oral capsule (3 sources) Start: 07-26-2015 take 1 capsule by mouth once daily Flaxseed Oil ([place]-3 Flaxseed Oil) 1,000 MG capsule Active 1000 MG PO DAILY July 26, 2015 12:00am 24 hr metFORMIN hydrochloride 500 mg extended release oral tablet (3 sources) Biguanide Start: 07-26-2015 take 500 mg by mouth at bedtime Metformin Active 500 MG PO AT BEDTIME July 26, 2015 12:00am Multivitamin (Daily Multiple Vitamin) 1 EACH tablet (3 sources) Start: 07-26-2015 take 1 tablet by mouth once daily Multivitamin (Daily Multiple Vitamin) 1 EACH tablet Active 1 EACH PO DAILY July 26, 2015 1:21pm Start: 07-26-2015 take 1 tablet by tal th once daily Multivitamin (Daily Multiple Vitamin) 1 EACH tablet Active 1 EACH PO DAILY July 26, 2015 12:00am Start: 07-26-2015 take 1 tablet by tal th once daily Multivitamin (Daily Multiple Vitamin) 1 EACH tablet Active 1 EACH PO DAILY July 25, 2015 11:00pm triamcinolone acetonide 0.001 mg/mg topical ointment (3 sources) Corticosteroid Start: 07-26-2015 Triamcinolone Acetonide Active 1 APPLIC TOPICAL TWICE A DAY July 26, 2015 12:00am zolpidem tartrate 10 mg oral tablet (3 sources) gamma-Aminobutyric Acid-ergic Agonist Start: 07-26-2015 take 1 tablet by mouth at bedtime Zolpidem (Ambien) 10 MG tablet Active 10 MG PO AT BEDTIME July 26, 2015 12:00am Completed/Discontinued Medications Medication Drug Class(es) Dates Sig (Normalized) Sig (Original) atenolol 50 mg oral tablet (4 sources) beta-Adrenergic Glenn Start: 02-20-2018 take 1 tablet by mouth once daily ATENOLOL 50 MG TABS one tablet by mouth daily ATENOLOL [id number] Hakan Meade MD Start: 07-26-2015 take 50 mg by mouth once daily Atenolol Active 50 MG PO DAILY July 26, 2015 12:00am cholecalciferol 3775 unt / folic acid 1 mg oral capsule (1 source) Vitamin D Start: 02-20-2018 take 1 tablet by mouth once daily ORTHO D CAPS one tablet by mouth daily FOLIC ACID-CHOLECALCIFEROL CAPS [id number] Hakan Meade MD Start: 02-20-2018 take 1 tablet by tal th once daily ORTHO D CAPS one tablet by mouth daily FOLIC ACID-CHOLECALCIFEROL CAPS [id number] Hakan Meade MD escitalopram 10 mg oral tablet (1 source) Serotonin Reuptake Inhibitor Start: 02-20-2018 take 1 tablet by mouth once daily ESCITALOPRAM OXALATE 10 MG TABS one tablet by mouth daily ESCITALOPRAM OXALATE [id number] Hakan Meade MD Start: 02-20-2018 take 1 tablet by tal th once daily ESCITALOPRAM OXALATE 10 MG TABS one tablet by mouth daily ESCITALOPRAM OXALATE [id number] Hakan Medae MD hydroCHLOROthiazide 25 mg / triamterene 37.5 mg oral tablet (4 sources) Potassium-sparing Diuretic, Thiazide Diuretic Start: 02-20-2018 take 1 tablet by mouth once daily TRIAMTERENE-HCTZ 37.5-25 MG TABS one tablet by mouth daily TRIAMTERENE-HCTZ [id number] Hakan Meade MD Start: 07-26-2015 take 1 capsule by mouth once daily Triamterene-Hydrochlorothiazid Active 1 CAP PO DAILY July 26, 2015 12:00am potassium chloride 10 meq oral tablet (4 sources) Start: 02-20-2018 take 1 tablet by mouth once daily POTASSIUM CHLORIDE FE ER 10 MEQ CR-TABS one tablet by mouth daily POTASSIUM CHLORIDE FE ER [id number] Hakan Meade MD Start: 07-26-2015 take 10 mEq by mouth once jeri y Potassium Chloride Active 10 MEQ PO DAILY July 26, 2015 12:00am Problems Active Problems Problem Classification Problem Date Documented Da te Episodic/Chronic Diabetes mellitus without complication (1 source) Type 2 diabetes mellitus without complications; Translations: [Type 2 diabetes mellitus without complications] Onset: 07-16-2023 Chronic Osteoarthritis (2 sources) Unilateral primary osteoarthritis, left knee; Translations: [Unilateral primary osteoarthritis, right knee] Onset: 02-20-2018 02-20-2018 Chronic Osteoporosis (1 source) Age-related osteoporosis without current pathological fracture; Translations: [Age-related osteoporosis without current pathological fracture] Onset: 03-23-2024 Chronic Other screening for suspected conditions (not mental disorders or infectious disease) (1 source) Encounter for screening mammogram for malignant neoplasm of breast; Translations: [Encounter for screening mammogram for malignant neoplasm of breast] Onset: 03-23-2024 Episodic Past or Other Problems Problem Classification Problem Date Documented Da te Episodic/Chronic Unclassified (1 source) Problem Results Test Name Value Interpretation Reference Range Facility Basophil percentageOrdered B y: Tico Elizondo on 07-11-2023 Bilirubin [Mass/Vol] 0.80 mg/dL Normal 0.20-1.00 [facility] Comment on above: For patients on eltr ombopag therapy, use of [employer] TBIL is not recommended. Result Comment: For patients on eltrombopag therapy, use of [employer] TBIL is not recommended. Performed By: #### L 100.0100, L500.4050, L500.4100 #### [facility] [address] [facility] [address] Chloride [Moles/Vol] 106 mmol/L Normal 98-107 [facility] Comment on above: Performed By: #### L 100.0100, L500.4050, L500.4100 #### [facility] [address] [facility] [address] Cholesterol [Mass/Vol] 170 mg/dL Normal 200 [facility] Comment on above: <200 mg/dL Desirable 200-240 mg/dL Borderline >240 mg/dL High Risk Result Comment: <200 mg/dL Desirable 200-240 mg/dL Borderline >240 mg/dL High Risk Performed By: #### L 100.0100, L500.4050, L500.4100 #### [facility] [address] [place], [address] Glucose [Mass/Vol] 153 mg/dL High 74-106 [facility] Comment on above: Fasting Glucose resu lt greater than or equal to 126 mg/dL suggests DIABETES MELLITUS per A.D.A. criteria. Result Comment: Fast ing Glucose result greater than or equal to 126 mg/dL suggests DIABETES MELLITUS per A.D.A. criteria. Performed By: #### L 100.0100, L500.4050, L500.4100 #### [facility] [address] [place], [address] Potassium [Moles/Vol] 4.3 mmol/L Normal 3.5-5.1 [facility] Comment on above: Performed By: #### L 100.0100, L500.4050, L500.4100 #### [facility] [address] [place], [address] Protein [Mass/Vol] 7.6 g/dL 6.4-8.2 [facility] Sodium [Moles/Vol] 137 mmol/L Normal 136-145 [facility] Comment on above: Performed By: #### L 100.0100, L500.4050, L500.4100 #### [facility] [address] [place], [address] Triglyceride [Mass/Vol] 108 mg/dL Normal [facility] Comment on above: The drugs N-Acetylcy steine and Metamizole may falsely depress this assay.Serum Triglycerides Reference Interval Normal <150 mg/dL Borderline high 150 - 199 mg/dL High 200 - 499 mg/dL Very High > or = 500 mg/dL Result Comment: The drugs N-Acetylcysteine and Metamizole may falsely depress this assay. Serum Triglycerides Reference Interval Normal <150 mg/dL Borderline high 150 - 199 mg/dL High 200 - 499 mg/dL Very High > or = 500 mg/dL Performed By: #### L 100.0100, L500.4050, L500.4100 #### [facility] [address] [place], [address] CBC W/Diff, Automatedon 05-0 -2023 Absolute Neut Normal 2.0-7.7 [facility] Comment on above: Result Comment: ERRO R Performed By: #### L 100.0100, L500.4050, L500.4100 #### [facility] [address] [place], [address] HCT Normal 37-47 [facility] Comment on above: Result Comment: ERRO R Performed By: #### L 100.0100, L500.4050, L500.4100 #### [facility] [address] [place], [address] HGB Normal 12.0-15.0 [facility] Comment on above: Result Comment: ERRO R Performed By: #### L 100.0100, L500.4050, L500.4100 #### [facility] [address] [place], [address] MCH Normal 27.0-32.0 [facility] Comment on above: Result Comment: ERRO R Performed By: #### L 100.0100, L500.4050, L500.4100 #### [facility] [address] [place], [address] MCHC Normal 32-36 [facility] Comment on above: Result Comment: ERRO R Performed By: #### L 100.0100, L500.4050, L500.4100 #### [facility] [address] [place], [address] MCV Normal 81-99 [facility] Comment on above: Result Comment: ERRO R Performed By: #### L 100.0100, L500.4050, L500.4100 #### [facility] [address] [place], [address] NEUT% Normal 47-70 [facility] Comment on above: Result Comment: ERRO R Performed By: #### L 100.0100, L500.4050, L500.4100 #### [facility] [address] [place], [address] PLT Normal 150-450 [facility] Comment on above: Result Comment: ERRO R Performed By: #### L 100.0100, L500.4050, L500.4100 #### [facility] [address] [place], [address] RBC Normal 4.2-5.4 [facility] Comment on above: Result Comment: ERRO R Performed By: #### L 100.0100, L500.4050, L500.4100 #### [facility] [address] [place], [address] RDW CV Normal 11.6-14.6 [facility] Comment on above: Result Comment: ERRO R Performed By: #### L 100.0100, L500.4050, L500.4100 #### [facility] [address] [place], [address] RDW SD Normal 35.1-43.9 [facility] Comment on above: Result Comment: ERRO R Performed By: #### L 100.0100, L500.4050, L500.4100 #### [facility] [address] [place], [address] WBC Normal 4.4-11.0 [facility] Comment on above: Result Comment: ERRO R Performed By: #### L 100.0100, L500.4050, L500.4100 #### [facility] [address] [place], [address] Comprehensive Metabolic Prof ilon 07-11-2023 Albumin [Mass/Vol] 3.8 g/dL Normal 3.2-5.0 [facility] Comment on above: Performed By: #### L 100.0100, L500.4050, L500.4100 #### [facility] [address] [place], [address] ALK P 85 U/L Normal 45-117 [facility] Comment on above: Performed By: #### L 100.0100, L500.4050, L500.4100 #### [facility] [address] [place], [address] AST [Catalytic activity/Vol] 13 U/L Low 15-37 [facility] Comment on above: Performed By: #### L 100.0100, L500.4050, L500.4100 #### [facility] [address] [place], [address] BUN/CRE 18.5 RATIO Normal 10-20 [facility] Comment on above: Performed By: #### L 100.0100, L500.4050, L500.4100 #### [facility] [address] [place], [address] CA,Total 9.6 mg/dL Normal 8.5-10.1 [facility] Comment on above: Performed By: #### L 100.0100, L500.4050, L500.4100 #### [facility] [address] [place], [address] EST GFR - AA 65 mL/min Normal >60 [facility] Comment on above: Result Comment: Afri can [place] Citizen GFR Calc Performed By: #### L 100.0100, L500.4050, L500.4100 #### [facility] [address] [place], [address] GAP 5 Normal 5-15 [facility] Comment on above: Performed By: #### L 100.0100, L500.4050, L500.4100 #### [facility] [address] [place], [address] GFR/1.73 sq M.predicted among non-blacks MDRD (S/P/Bld) [Vol rate/Area] 53 mL/min/{1.73_m2} Low >60 [facility] Comment on above: Result Comment: Non- GFR Calc Performed By: #### L 100.0100, L500.4050, L500.4100 #### [facility] [address] [place], [address] T PROT 7.6 g/dL Normal 6.4-8.2 [facility] Comment on above: Performed By: #### L 100.0100, L500.4050, L500.4100 #### [facility] [address] [place], [address] Comprehensive Metabolic Prof ilOrdered By: Tico Elizondo on 07-11-2023 Albumin/Globulin [Mass ratio] 1.0 {ratio} Normal 0.9-2.4 [facility] Comment on above: Performed By: #### L 100.0100, L500.4050, L500.4100 #### [facility] [address] [place], [address] ALT [Catalytic activity/Vol] 18 U/L Normal 13-56 [facility] Comment on above: Performed By: #### L 100.0100, L500.4050, L500.4100 #### [facility] [address] [place], [address] CO2 [Moles/Vol] 26.0 mmol/L Normal 21.0-32.0 [facility] Comment on above: Performed By: #### L 100.0100, L500.4050, L500.4100 #### [facility] [address] [place], [address] Globulin (S) [Mass/Vol] 3.8 g/dL Normal 2.2-4.2 [facility] Comment on above: Performed By: #### L 100.0100, L500.4050, L500.4100 #### [facility] [address] [place], [place], [id number] Laboratory - Chemistry and C hemistry - challengeOrdered By: Tico Elizondo on 07-11-2023 ALP [Catalytic activity/Vol] 85 U/L 45-117 [facility] Urea nitrogen/Creatinine [Mass ratio] 18.5 mg/mg 10-20 [facility] Lipid Profileon 07-11-2023 Cholesterol in VLDL [Mass/Vol] 22 mg/dL Normal 5-40 [facility] Comment on above: Performed By: #### L 100.0100, L500.4050, L500.4100 #### [facility] [address] [place], [place], [address] Lipid ProfileOrdered By: Rafaela Elizondo on 07-11-2023 Cholesterol in HDL [Mass/Vol] 54 mg/dL Normal [facility] Comment on above: The drugs N-Acetylcy steine and Metamizole may falsely depress this assay. Reference Range HDL <40 mg/dL Low HDL Cholesterol HDL >or= 60 mg/dL High HDL Cholesterol Result Comment: The drugs N-Acetylcysteine and Metamizole may falsely depress this assay. Reference Range HDL <40 mg/dL Low HDL Cholesterol HDL >or= 60 mg/dL High HDL Cholesterol Performed By: #### L 100.0100, L500.4050, L500.4100 #### [facility] [address] [place], [place], [address] Cholesterol in LDL [Mass/Vol] 94 mg/dL Normal 0-130 [facility] Comment on above: Performed By: #### L 100.0100, L500.4050, L500.4100 #### [facility] [address] [place], [place], [address] No Panel InformationOrdered By: Tico Elizondo on 07-11-2023 Estimated GFR (MDRD) Amer 65 mL/min >60 [facility] Comment on above: GFR Calc Estimated GFR (MDRD) Non-Af Amer 53 mL/min >60 [facility] Comment on above: Non- GFR Calc VLDL Cholesterol 22 mg/dL 5-40 [facility] Serum or plasma calcium christo urement (mass/volume)Ordered By: Tico Elizondo on 07-11-2023 Calcium [Mass/Vol] 9.6 mg/dL 8.5-10.1 [facility] Serum or plasma creatinine m easurement (mass/volume)Ordered By: Tico Elizondo on 07-11-2023 Creatinine [Mass/Vol] 1.08 mg/dL High 0.55-1.02 [facility] Comment on above: The validity of the calculated GFR & GFRAA in patients over 70 years has not been determined. Clinical correlation is essential. Result Comment: The validity of the calculated GFR GFRAA in patients over 70 years has not been determined. Clinical correlation is essential. Performed By: #### L 100.0100, L500.4050, L500.4100 #### [facility] [address] [place], [place], [address] Serum or plasma urea nitroge n measurement (mass/volume)Ordered By: Tico Elizondo on 07-11-2023 Urea nitrogen [Mass/Vol] 20 mg/dL High 7-18 [facility] Comment on above: Performed By: #### L 100.0100, L500.4050, L500.4100 #### [facility] [address] [place], [address] Thin prep Papanicolaou smear with manual screeningOrdered By: Tico Elizondo on 07-11-2023 Thin prep Papanicolaou smear with manual screening 3.8 g/dL 3.2-5.0 [facility] Thin prep Papanicolaou smear with manual screening 13 U/L 15-37 [facility] Thin prep Papanicolaou smear with manual screening 5 5-15 [facility] Basophil percentageOrdered B y: Tico Elizondo on 01-08-2023 Chloride [Moles/Vol] 109 mmol/L 98-107 [facility] Glucose [Mass/Vol] 118 mg/dL 74-106 [facility] Comment on above: Fasting Glucose resu lt from 100 to 125 mg/dL suggests IMPAIRED HOMEOSTASIS per A.D.A. criteria. Potassium [Moles/Vol] 4.3 mmol/L 3.5-5.1 [facility] Sodium [Moles/Vol] 139 mmol/L 136-145 [facility] - Chemistry and C hemistry - challengeOrdered By: Tico Elizondo on 01-08-2023 CO2 [Moles/Vol] 22.0 mmol/L 21.0-32.0 [facility] Urea nitrogen/Creatinine [Mass ratio] 20.5 mg/mg 10-20 [facility] No Panel InformationOrdered By: Tico Elizondo on 01-08-2023 Estimated GFR (MDRD) Amer 59 mL/min >60 [facility] Comment on above: GFR Calc Estimated GFR (MDRD) Non-Af Amer 49 mL/min >60 [facility] Comment on above: Non- GFR Calc Serum or plasma calcium christo urement (mass/volume)Ordered By: Tico Elizondo on 01-08-2023 Calcium [Mass/Vol] 9.0 mg/dL 8.5-10.1 [facility] Serum or plasma creatinine m easurement (mass/volume)Ordered By: Tico Elizondo on 01-08-2023 Creatinine [Mass/Vol] 1.17 mg/dL 0.55-1.02 [facility] Comment on above: The validity of the calculated GFR & GFRAA in patients over 70 years has not been determined. Clinical correlation is essential. Serum or plasma urea nitroge n measurement (mass/volume)Ordered By: Tico Elizondo on 01-08-2023 Urea nitrogen [Mass/Vol] 24 mg/dL 7-18 [facility] Thin prep Papanicolaou smear with manual screeningOrdered By: Tico Elizondo on 01-08-2023 Thin prep Papanicolaou smear with manual screening 8 5-15 [facility] Basophil percentageon 2021 Chloride [Moles/Vol] 107 mmol/L 98-107 [facility] Work Phone: Cholesterol [Mass/Vol] 169 mg/dL <200 [facility] Work Phone: Comment on above: <200 mg/dL Desirable 200-240 mg/dL Borderline >240 mg/dL High Risk Glucose [Mass/Vol] 191 mg/dL 74-106 [facility] Work Phone: Comment on above: Fasting Glucose resu lt greater than or equal to 126 mg/dL suggests DIABETES MELLITUS per A.D.A. criteria. Potassium [Moles/Vol] 3.9 mmol/L 3.5-5.1 [facility] Work Phone: Sodium [Moles/Vol] 137 mmol/L 136-145 [facility] Work Phone: Triglyceride [Mass/Vol] 152 mg/dL [facility] Work Phone: Comment on above: The drugs N-Acetylcy steine and Metamizole may falsely depress this assay.Serum Triglycerides Reference Interval Normal <150 mg/dL Borderline high 150 - 199 mg/dL High 200 - 499 mg/dL Very High > or = 500 mg/dL Laboratory - Chemistry and C hemistry - challengeon 05-18-2021 CO2 [Moles/Vol] 22.0 mmol/L 21.0-32.0 [facility] Work Phone: Urea nitrogen/Creatinine [Mass ratio] 21.6 mg/mg 10-20 [facility] Work Phone: No Panel Informationon 05-18 Estimated GFR (MDRD) Amer 63 mL/min >60 [facility] Work Phone: Comment on above: GFR Calc Estimated GFR (MDRD) Non-Af Amer 52 mL/min >60 [facility] Work Phone: Comment on above: Non- GFR Calc Serum or plasma calcium christo urement (mass/volume)on 05-18-2021 Calcium [Mass/Vol] 10.0 mg/dL 8.5-10.1 [facility] Work Phone: Serum or plasma cholesterol in HDL measurement (mass/volume)on 05-18-2021 Cholesterol in HDL [Mass/Vol] 44 mg/dL [facility] Work Phone: Comment on above: The drugs N-Acetylcy steine and Metamizole may falsely depress this assay. Reference Range HDL <40 mg/dL Low HDL Cholesterol HDL >or= 60 mg/dL High HDL Cholesterol Serum or plasma cholesterol in VLDL measurement (mass/volume)on 05-18-2021 Cholesterol in VLDL [Mass/Vol] 30 mg/dL 5-40 [facility] Work Phone: Serum or plasma creatinine m easurement (mass/volume)on 05-18-2021 Creatinine [Mass/Vol] 1.11 mg/dL 0.55-1.02 [facility] Work Phone: Comment on above: The validity of the calculated GFR & GFRAA in patients over 70 years has not been determined. Clinical correlation is essential. Serum or plasma low density lipoprotein (LDL) cholesterol measurement (mass/volume)on 05-18-2021 Cholesterol in LDL [Mass/Vol] 95 mg/dL 0-130 [facility] Work Phone: Serum or plasma urea nitroge n measurement (mass/volume)on 05-18-2021 Urea nitrogen [Mass/Vol] 24 mg/dL 7-18 [facility] Work Phone: Thin prep Papanicolaou smear with manual screeningon 05-18-2021 Thin prep Papanicolaou smear with manual screening 8 5-15 [facility] Work Phone: Clinical Summary: HMSPatient IDon 02-20-2018 OOP Invalid Interpretation Code [facility] Work Phone: Clinical Summary: Scanned RO S Summaryon 02-20-2018 endocrine ROS Denies Invalid Interpretation Code [facility] Work Phone: genitourinary review of systems, E&M Denies Invalid Interpretation Code [facility] Work Phone: Lymphocytes Auto #/vol (Bld) Denies Invalid Interpretation Code [facility] Work Phone: ROS cardiovascular E&M Denies Invalid Interpretation Code [facility] Work Phone: ROS ENT E&M Denies Invalid Interpretation Code [facility] Work Phone: ROS gastrointestinal E&M Denies Invalid Interpretation Code [facility] Work Phone: ROS general E&M Denies Invalid Interpretation Code [facility] Work Phone: ROS Musculoskeletal comments Joint Swelling,Pain,Nicole nt Pain,Stiffness,Ar thritis Invalid Interpretation Code [facility] Work Phone: ROS musculoskeletal E&M Complains Invalid Interpretation Code [facility] Work Phone: ROS neurological E&M Denies Invalid Interpretation Code [facility] Work Phone: ROS Psych comment Depression Invalid Interpretation Code [facility] Work Phone: ROS psychiatric E&M Complains Invalid Interpretation Code [facility] Work Phone: ROS Pulmonary comment Sleep Apnea Invalid Interpretation Code [facility] Work Phone: ROS pulmonary E&M Complains Invalid Interpretation Code [facility] Work Phone: ROS skin E&M Denies Invalid Interpretation Code [facility] Work Phone: Office Visit: New - 1st visi t with practice, Rm: 3on 02-20-2018 NEGATED: Highlighted rowProtein mass conc Done Invalid Interpretation Code [facility] Work Phone: Clinical Lists Update: Prelo ad Extendedon 02-16-2018 Tobacco smoking status NHIS Tobacco smoking status NHIS Invalid Interpretation Code [facility] Work Phone: Vital Signs Date Time Vital Sign Value Performing Clinician Facility NEGATED: Highlighted [id number] 08:21-0500 BMI (Body Mass Index) 48.6 kg/m2 Alexy Mathias LPN [facility] Work Phone: NEGATED: Highlighted [id number] 08:21-0500 BP Diastolic 76 mm[Hg] Alexy Mathias MEERA [facility] Work Phone: NEGATED: Highlighted [id number] 08:21-0500 BP Systolic 134 mm[Hg] Alexy Mathias MEERA [facility] Work Phone: NEGATED: Highlighted [id number] 08:21-0500 Height 165.1 cm Alexy Stew ESTES [facility] Work Phone: NEGATED: Highlighted [id number] 08:21-0500 Height 165 cm Alexy Mathias CANDY DIPPER [facility] Work Phone: NEGATED: Highlighted [id number] 08:21-0500 Pulse (Heart Rate) 60 /min Alexy Stew ESTES [facility] Work Phone: NEGATED: Highlighted [id number] 08:21-0500 Weight 132 kg Alexy Mathias CANDY DIPPER [facility] Work Phone: Encounters Encounter Date Encounter Type Care Provider Facility Start: 03-23-2024 ambulatory Michelle Castillo NP Facility :[facility] Start: 07-11-2023 End: 07-11-2023 ambulatory [facility] Work Phone: Start: 07-11-2023 End: 07-11-2023 Patient encounter procedure [facility] Work Phone: Start: 07-11-2023 End: 07-11-2023 ambulatory Tico Elizondo Facility:[facility] Start: 01-08-2023 End: 01-08-2023 ambulatory [facility] Work Phone: Start: 01-08-2023 End: 01-08-2023 Patient encounter procedure [facility] Start: 08-01-2021 End: 08-01-2021 [facility] Start: 05-18-2021 End: 05-18-2021 Patient encounter procedure [facility] Start: 02-20-2018 End: 02-20-2018 Patient encounter procedure Hakan Meade MD Work Phone: [facility] Work Phone: Procedures Date Procedure Procedure Detail Performing Clinician Start: 08-01-2021 Plain chest X-ray Start: 02-20-2018 End: 02-20-2018 Blood pressure within normal parameters - no follow-up required Hakan Meade MD Work Phone: Start: 02-20-2018 End: 02-20-2018 BMI documented as above normal parameters - follow-up documented Hakan Meade MD Work Phone: Start: 02-20-2018 End: 02-20-2018 Documentation of current medications Hakan Meade MD Work Phone: Start: 02-20-2018 End: 02-20-2018 Osteoarthritis assess Hakan pelayo MD Work Phone: Start: 02-20-2018 End: 02-20-2018 Pain assessment not documented - reason not given Hakan Meade MD Work Phone: Start: 02-20-2018 End: 02-20-2018 Tobacco non-user Hakan Wren i, MD Work Phone: Plan of Treatment Date Care Activity Detail Author Start: 02-20-2018 End: 02-20-2018 Radiologic examination knee 3 views [facility] Work Phone: Start: 02-20-2018 End: 02-20-2018 Appointment Appointment [facility] Work Phone: Patient Education \cps-sql1\CPS_ PtEducati on\CDC_FALL_PREVENTION. pdf [facility] Work Phone: Immunizations Immunization Date Immunization Notes Care Provider Jak pierre No information available. Alexy Mathias LPN [facility] Work Phone: Payers Date Payer Category Payer Medicare [id number] 2023 Self-pay [id number] 2023 Unknown [id number] 2011 Unknown [id number] Unknown [id number] Social History Date Type Detail Facility Start: 08-09-2015 End: 08-09-2015 Assertion Unknown if ever smoked [facility] Work Phone: Start: 1955 Sex Assigned At Female W [facility] Evaluation note Note Date & Type Note Facility Evaluation note No assessment information availa ble [facility] Work Phone: Chief Complaint Chief Complaint Description Start Date bilateral knee pain Preliminary chief co mplaint data, not yet signed by the author as of Instructions Instruction Description Start Date Patient advised to follow-up with Primary Care Physician for BMI management. Advance Directives No Advanced Directives Records Found Advance Directive Response Recorded Date/ Time Advance Directives No August 08 6 2:28pm Living Will No August 09, 2015 2 :28pm Power of Seating Upholsterer No August 09, 2015 2:28pm Advance Directive Response Recorded Date/ Time Advance Directives No August 08 6 1:28pm Living Will No August 09, 2015 1 :28pm Power of Seating Upholsterer No August 09, 2015 1:28pm Assessments There may be information available, but it has not been provided by the sender. Review of System There may be information available, but it has not been provided by the sender. Family History There may be information available, but it has not been provided by the sender.No Family History Records Found History of Present Illness There may be information available, but it has not been provided by the sender. Chief Complaint and Reason for Visit Chief Complaint COUGH Summary Purpose Additional Source Comments Reason for Visit (unrecogniz ed section and content) Reason For Visit Description New - 1st visit with practice Preliminary reason f or visit data, not yet signed by the author as of bilateral knee pain Goals (unrecognized section and content) Goals may be documented in a n alternate sectionGoals may be documented in an alternate sectionGoals may be documented in an alternate section Care Teams (unrecognized sec tion and content) Team Status: Active Member Role Status Dates Dr. Tico Elizondo MD Family Provider Active Dr. Tico Elizondo MD Primary Care Provider Active Team Status: Inactive Member Role Status Dates Dr. Tico Elizondo MD Primary Care Provider, Attending Provider Active Team Status: Inactive Member Role Status Dates Dr. Tico Elizondo MD Primary Care Provi lauri, Attending Provider, Referring Provider Active INFORMATION SOURCE (unrecogn ized section and content) DATE CREATED AUTHOR 03/24/2024 [facility] FOR RECORDS PERTAINING TO PATIENTS WHO ARE OR HAVE BEEN ENROLLED IN A CHEMICAL DEPENDENCY/SUBSTANCEABUSE PROGRAM, SOME INFORMATION MAY BE OMITTED. This clinical summary was aggregated from multiple sources. Caution should be exercised in using it in the provision of clinical care. This summary normalizes information from multiple sources, and as a consequence, information in this document may materially change the coding, format and clinical context of patient data. In addition, data may be omitted in some cases. CLINICAL DECISIONS SHOULD BE BASED ON THE PRIMARY CLINICAL RECORDS. [employer] provides no warranty or guarantee of the accuracy or completeness of information in this document.
== END | disposition home or self-care (01) ==
LOC: MFPLAB 14:06
PROVIDERS: PCP Family Medicine; Referring Provider Family Medicine; Visit Provider Family Medicine
DX: E11.9 Type 2 diabetes mellitus without complications (principal)
CPT/HCPCS: 36415; 80053; 80061; 82043; 82570

== ENCOUNTER → 2024-08-19 | Outpatient (CLI) | payer MEDICARE, OTHER, SELFPAY ==
[2024-08-19 18:57] LABS: Microalbumin,Random Urine < 12.0 mg/L (NO RANGE EST.); Microalbumin:Creatinine Ratio UNABLE TO CALCULATE mg/g CRE
== END | disposition home or self-care (01) ==
LOC: LABSPEC 16:57
PROVIDERS: PCP Family Medicine; Referring Provider Family Medicine; Visit Provider Family Medicine
DX: E11.9 Type 2 diabetes mellitus without complications (principal)
CPT/HCPCS: 82043; 82570

== ENCOUNTER → 2024-09-07 | Outpatient (CLI) | payer MEDICARE, OTHER, SELFPAY ==
--- NOTE | 2024-09-07 15:30 | BI_ITS ---
EXAM: SCREENING MAMM (CAD), BILAT DATE: 09/07/2024 CLINICAL HISTORY: F, Age 68 y/o , SCREENING TECHNIQUE: SCREENING MAMM (CAD), BILAT COMPARISON: Prior exam(s) were compared FINDINGS: TISSUE DENSITY: There are scattered areas of fibroglandular density. Bilateral Breast Mammographic Findings: Right breast: There are new grouped calcifications in the upper-outer right breast Left breast: No suspicious masses, calcifications or other abnormalities are identified. BI/SCREENING MAMM (CAD), BILAT IMPRESSION: Additional diagnostic imaging with mammographic magnification views are recomme nded for calcifications in the upper-outer right breast. No mammographic evidence of malignancy in the left breast. OVERALL FINAL ASSESSMENT BI-RADS 0: INCOMPLETE - NEED ADDITIONAL IMAGING EVALUATION. RECOMMENDATION: Additional Views obtained/call backs A letter with findings and recommendations will be mailed to the patient. Reading Location: [id number]
== END | disposition home or self-care (01) ==
LOC: OPBI 15:29
PROVIDERS: PCP Family Medicine; Referring Provider Family Medicine; Visit Provider Family Medicine
DX: Z12.31 Encounter for screening mammogram for malignant neoplasm of breast (principal)
CPT/HCPCS: 77067

== ENCOUNTER → 2024-09-15 | Outpatient (CLI) | payer MEDICARE, OTHER, SELFPAY ==
--- NOTE | 2024-09-15 09:27 | BI_ITS ---
EXAM: DIAG MAMM W/CAD, UNILAT 09/15/2024 CLINICAL HISTORY: 68-year-old female presents for follow-up examination of the right breast findings seen on examination of 09/07/2024. Family history of breast cancer in a maternal aunt. TECHNIQUE: DIAG MAMM W/CAD, UNILAT. COMPARISON: Prior exam(s) dated 09/07/2024, 12/02/2019, 10/23/2012. FINDINGS: TISSUE DENSITY: There are scattered areas of fibroglandular density. Unilateral Right Breast Mammographic Findings: Follow-up examination performed for the calcifications seen in the right breast on examination of 09/07/2024. On the present examination, there is a group of fine pleomorphic calcifications in the upper- outer right breast at middle depth, measuring up to 2.9 cm in total span. BI/DIAG MAMM W/CAD, UNILAT IMPRESSION: Suspicious right breast calcifications. Recommend tissue sampling with stereot actic/tomosynthesis guided biopsy. OVERALL FINAL ASSESSMENT BI-RADS 4: SUSPICIOUS ABNORMALITY. RECOMMENDATION: Biopsy Recommended A letter with findings and recommendations will be mailed to the patient. Reading Location: [id number]
== END | disposition home or self-care (01) ==
LOC: OPBI 09:25
PROVIDERS: PCP Family Medicine; Referring Provider Nurse Practitioner Family; Visit Provider Nurse Practitioner Family
DX: R92.8 Other abnormal and inconclusive findings on diagnostic imaging of breast (principal)
CPT/HCPCS: 77061; 77065; G0279

== ENCOUNTER 2024-09-29 09:56 | Outpatient (CLI) | payer MEDICARE, OTHER, SELFPAY ==
--- NOTE | 2024-09-29 11:25 | BRBX_PTH ---
PATIENT: MARISSA CAMERON LOC: [facility] U#:[id number] AGE/SX: 68/F ROOM: RE09/29/[address]: Dr. Sean Correa MD : 1955 BED: DIS: 09/29/2024 SPEC #: [id number] RECD: 09/29/24 11:45 STATUS: [place] REJason #: [id number] LOUISA: 09/29/24 11:[address]: Sean Correa DEPT: SURGICAL PATHOLOGY RECD BY: Lan Mathias ENTERED: 09/29/24 13:14 SP TYPE: BREAST BX OTHR DR: Dr. Tico Elizondo MD Tissues: A - Right breast, NOS Procedures: Immunohistochemical Stains Surgery Specimen Level IV IHC Stain ADDITIONAL HEADER OPERATION: Right breast stereotactic needle core biopsy PRE-OP DIAGNOSIS: Microcals TISSUE SUBMITTED: A- Microcalcs in chambers 5&6 Ischemic Time: 18 minute Fixation Time: 7 hours, 47 minutes MICROSCOPIC DIAGNOSIS A. Breast, right, microcalcifications, stereotactic biopsy: - Benign fibroadenomatoid change with focal calcification. - IHC for CK5/6 and p40 support the histologic impression. MICROSCOPIC DESCRIPTION Slides are reviewed. All matched controls reacted appropriately. These tests were developed and their performance characteristics determined by [facility]. They may not have been cleared or approved by the U.S. Food and Drug Administration. The FDA has determined that such clearance or approval is not necessary.? The above immunohistochemical/dualISH?markers are reviewed by the Pathologist. GROSS DESCRIPTION Received fresh and subsequently placed in formalin labeled with the patient's name and date of are 6 heath-yellow lobulated soft tissue cores, 2.7-3.3 cm in length by 0.3-0.8 cm in diameter. The specimen is entirely submitted in 3 cassettes, following postoperative imaging as follows: A1: Chambers #5-#6A2: Chambers #3-#4A3: Chambers #1-#2 Cold ischemic time: 18 minutesFormalin fixation time: 7 hours, 47 minutes OR 09/29/2024 CPT:99020,68542,63090
--- NOTE | 2024-09-29 11:25 | BRBX_PTH ---
PATIENT: MARISSA CAMERON LOC: [facility] U#:[id number] AGE/SX: 68/F ROOM: RE09/29/[address]: Dr. Sean Correa MD : 1955 BED: DIS: 09/29/2024 SPEC #: [id number] RECD: 09/29/24 11:45 STATUS: [place] REJason #: [id number] LOUISA: 09/29/24 11:[address]: Sean Correa DEPT: SURGICAL PATHOLOGY RECD BY: Lan Mathias ENTERED: 09/29/24 13:14 SP TYPE: BREAST BX OTHR DR: Dr. Tico Elizondo MD Tissues: A - Right breast, NOS Procedures: Immunohistochemical Stains Surgery Specimen Level IV IHC Stain ADDITIONAL HEADER OPERATION: Right breast stereotactic needle core biopsy PRE-OP DIAGNOSIS: Microcals TISSUE SUBMITTED: A- Microcalcs in chambers 5&6 Ischemic Time: 18 minute Fixation Time: 7 hours, 47 minutes MICROSCOPIC DIAGNOSIS A. Breast, right, microcalcifications, stereotactic biopsy: - Benign fibroadenomatoid change with focal calcification. - IHC for CK5/6 and p40 support the histologic impression. MICROSCOPIC DESCRIPTION Slides are reviewed. All matched controls reacted appropriately. These tests were developed and their performance characteristics determined by [facility]. They may not have been cleared or approved by the U.S. Food and Drug Administration. The FDA has determined that such clearance or approval is not necessary.? The above immunohistochemical/dualISH?markers are reviewed by the Pathologist. GROSS DESCRIPTION Received fresh and subsequently placed in formalin labeled with the patient's name and date of are 6 heath-yellow lobulated soft tissue cores, 2.7-3.3 cm in length by 0.3-0.8 cm in diameter. The specimen is entirely submitted in 3 cassettes, following postoperative imaging as follows: A1: Chambers #5-#6A2: Chambers #3-#4A3: Chambers #1-#2 Cold ischemic time: 18 minutesFormalin fixation time: 7 hours, 47 minutes [place] 09/29/2024 CPT:57665,[id number],[id number]
--- NOTE | 2024-09-29 12:38 | OP.PCM_ITS ---
Procedures Integumentary 16xxx-193xx: 33506 [facility] (Standard) Operative Information Date of Procedure: 09/29/24 Pre-Operative Diagnosis: Right breast calcifications Post-Operative Diagnosis: Same Surgery/Procedure Performed: Stereotactic guided core needle biopsy right breast animal science professor: No Type of Anesthesia: Local Procedure Start Time: 11:20 Procedure Stop Time: 11:50 Select all DRAINS/GRAFTS/IMPLANTS that apply: None Estimated Blood Loss: 5 Specimen collected: Yes Description of specimen(s) removed: Breast cores x 6 Description of surgery: Procedure name: Stereotactic biopsy of right breast Indication: Pleomorphic calcifications in the upper outer quadrant of right breast After obtaining written and verbal consent and reviewing the details of the procedure, patient was positioned on the mammography table. Supply Chain Vice President image was performed to identify the location of microcalcifications. Stereo images were obtained at plus and -15 degrees. With these images, the biopsy site was targeted between 2 dominant calcifications to be sampled. Then the biopsy site was anesthetized with local anesthetic both at the skin and deeply along the ventral biopsy tract. A skin giovanna was made with an 11 blade to accommodate the 8 [place] mammotome core needle. The needle was advanced into this opening and the needle was fired. Post-firing images confirmed that we are in the vicinity of the calcifications. We then obtained 6 biopsies along the 180 degrees superior and inferior to the needle insertion site (roughly covering 12:00 to 7:00). The cores were then x-rayed and we confirmed the presence of microcalcifications in 5th and 6th specimens. Satisfied with this result, I placed a clip at the biopsy site and confirmed it presents with another x-ray. This concluded the biopsy and the patient was allowed to sit upright while manual pressure was applied externally. She tolerated the procedure well without any apparent complications. She was given post-- procedure care instructions and we will follow up once pathology has resulted. Surgical Findings: ? Rather wide field of calcifications of the upper outer quadrant of right breast Complications Complications: No
--- NOTE | 2024-09-29 12:38 | OP.PCM_ITS ---
Procedures Integumentary 16xxx-193xx: 05983 [facility] Oper[facility] Report (Standard) Operative Information Date of Procedure: 09/29/24 Pre-Operative Diagnosis: Right breast calcifications Post-Operative Diagnosis: Same Surgery/Procedure Performed: Stereotactic guided core needle biopsy right breast robotics mechanic: No Type of Anesthesia: Local Procedure Start Time: 11:20 Procedure Stop Time: 11:50 Select all DRAINS/GRAFTS/IMPLANTS that apply: None Estimated Blood Loss: 5 Specimen collected: Yes Description of specimen(s) removed: Breast cores x 6 Description of surgery: Procedure name: Stereotactic biopsy of right breast Indication: Pleomorphic calcifications in the upper outer quadrant of right breast After obtaining written and verbal consent and reviewing the details of the procedure, patient was positioned on the mammography table. Manager Plant image was performed to identify the location of microcalcifications. Stereo images were obtained at plus and -15 degrees. With these images, the biopsy site was targeted between 2 dominant calcifications to be sampled. Then the biopsy site was anesthetized with local anesthetic both at the skin and deeply along the ventral biopsy tract. A skin giovanna was made with an 11 blade to accommodate the 8 [place] mammotome core needle. The needle was advanced into this opening and the needle was fired. Post-firing images confirmed that we are in the vicinity of the calcifications. We then obtained 6 biopsies along the 180 degrees superior and inferior to the needle insertion site (roughly covering 12:00 to 7:00). The cores were then x-rayed and we confirmed the presence of microcalcifications in 5th and 6th specimens. Satisfied with this result, I placed a clip at the biopsy site and confirmed it presents with another x-ray. This concluded the biopsy and the patient was allowed to sit upright while manual pressure was applied externally. She tolerated the procedure well without any apparent complications. She was given post-- procedure care instructions and we will follow up once pathology has resulted. Surgical Findings: ? Rather wide field of calcifications of the upper outer quadrant of right breast Complications Complications: No
== END 2024-09-29 23:59 | disposition home or self-care (01) ==
LOC: BIRAD 09:56
PROVIDERS: PCP Family Medicine; Referring Provider Surgery; Visit Provider Surgery
DX: R92.1 Mammographic calcification found on diagnostic imaging of breast (principal)
CPT/HCPCS: 19081; 88305; 88341; 88342; A4648